=== PATIENT | male | born 1950 | race Caucasian/White ===

== ENCOUNTER → 2021-03-27 | Outpatient (CLI) | payer OTHER ==
--- NOTE | 2021-03-27 09:11 | REP ---
INDICATION: AAA WITHOUT RUPTURE COMPARISON: None. TECHNIQUE: Multiple ultrasonographic images of the abdominal aorta were obtained from the level of the celiac access to the aortoiliac bifurcation and the longitudinal and transverse scan planes along with color Doppler imaging. FINDINGS: The maximal AP dimension of the abdominal aorta as measured in the longitudinal scan plane is 2.7 cm. There is no evidence of bilateral common iliac arterial ectasia. IMPRESSION: No evidence of abdominal aortic aneurysm. <Electronically signed by Nick Bai > 03/27/21 0907
--- NOTE | 2021-03-27 09:17 | REP ---
INDICATION: AAA WO RUPTURE/OCCLUSION/STENOSIS/PN UNSP LOW LEG COMPARISON: None. TECHNIQUE: Bilateral lower extremity arterial ultrasound with Doppler FINDINGS: All numeric values represent peak systolic velocity in cm/S EC On the right: The ankle brachial index is 1.1. VIDEO SYSTEMS ENGINEER: 150 biphasic Profunda: 111 biphasic SFA proximal: 150 biphasic SFA mid: 93 biphasic/triphasic SFA distal: 118 triphasic Popliteal: 79 triphasic ELIZABETH proximal: 35 biphasic Tibioperoneal trunk: 52 monophasic RESIN COATER proximal: 81 monophasic RESIN COATER distal: 89 monophasic ELIZABETH distal: 29 biphasic On the left: Ankle brachial index 0.97 VIDEO SYSTEMS ENGINEER: 85 biphasic Profunda: 77 biphasic SFA proximal: 103 biphasic SFA mid: 85 biphasic SFA distal: 75 biphasic Popliteal: 62 biphasic ELIZABETH proximal: 33 biphasic Tibioperoneal trunk: 43 biphasic RESIN COATER proximal: 76 biphasic to triphasic RESIN COATER distal: 75 triphasic ELIZABETH: 31 triphasic Mild plaque was seen throughout the right lower extremity mostly in the common femoral artery without evidence of a significant stenosis. Mild plaque formation was seen throughout the left lower extremity with no evidence of a significant stenosis. IMPRESSION: As above <Electronically signed by Nick Bai > 03/27/21 0913
== END ==
LOC: M RAD 06:44
PROVIDERS: ATTEND Physician Assistant
DX: I71.4 Abdominal aortic aneurysm, without rupture (principal); M79.669 Pain in unspecified lower leg

== ENCOUNTER → 2021-03-28 | Outpatient (CLI) | payer OTHER ==
--- NOTE | 2021-03-28 17:40 | REP ---
INDICATION: CAROTID STENOSIS COMPARISON: None. TECHNIQUE: Real-time ultrasound evaluation and duplex Doppler interrogation of the extracranial carotid vasculature is performed. FINDINGS: There is mild plaquing and narrowing in both carotid bulbs extending into the internal and external carotid arteries. Luminal narrowing is less than 50%. There is no evidence of hemodynamically significant stenosis of either internal carotid artery. Normal flow velocities are seen. The vertebral arteries demonstrate normal direction of flow. RIGHT LEFT Peak systolic velocity ICA 62.7 cm/s 66.4 cm/s End diastolic velocity ICA 15.7 cm/s 23.6 cm/s Peak systolic velocity CCA 86.4 cm/s 103cm/s Peak systolic velocity ECA 122 cm/s 98.2 cm/s ICA/CCA ratio 0.72 0.64 IMPRESSION: Bilateral luminal narrowing of the internal carotid arteries less than 50%. No evidence of hemodynamically significant stenosis. <Electronically signed by Percy Colindres > 03/28/21 [id number]
== END ==
LOC: M RAD 16:11
PROVIDERS: ATTEND Physician Assistant
DX: I65.29 Occlusion and stenosis of unspecified carotid artery (principal)

== ENCOUNTER → 2021-06-08 | Outpatient (CLI) | payer OTHER ==
[2021-06-11 19:06] LABS: ASPERGILLUS FLAVUS ABY Negative (Neg:<1:1); ASPERGILLUS FUMIGATUS ABY Negative (Neg:<1:1); ASPERGILLUS NIGER ABY Negative (Neg:<1:1); BLASTOMYCES ABY Negative (Neg:<1:1)
== END ==
LOC: M PLALAB 10:53
PROVIDERS: ATTEND Internal Medicine Pulmonary Disease
DX: R91.8 Other nonspecific abnormal finding of lung field (principal)

== ENCOUNTER → 2022-02-28 | Outpatient (CLI) | payer OTHER | LOC: M RAD 13:18 | PROVIDERS: ATTEND Family Medicine | DX: R91.1 Solitary pulmonary nodule (principal) ==

== ENCOUNTER → 2022-07-09 | Outpatient (CLI) | payer MEDICARE, OTHER | LOC: M RAD 13:34 | PROVIDERS: ATTEND Internal Medicine Pulmonary Disease | DX: R91.8 Other nonspecific abnormal finding of lung field (principal); J44.9 Chronic obstructive pulmonary disease, unspecified ==

== ENCOUNTER → 2023-02-13 | Outpatient (CLI) | payer MEDICARE, OTHER | LOC: M PLAIMG 12:31 | PROVIDERS: ATTEND Internal Medicine Pulmonary Disease | DX: Z90.49 Acquired absence of other specified parts of digestive tract (principal); R91.1 Solitary pulmonary nodule ==

== ENCOUNTER → 2024-03-25 | Outpatient (CLI) | payer OTHER, MEDICARE | LOC: M RAD 13:22 | PROVIDERS: ATTEND Nurse Practitioner Family | DX: R80.1 Persistent proteinuria, unspecified (principal) ==